=== PATIENT | female | born 1995 | race Caucasian/White ===

== ENCOUNTER 2016-10-20 18:46 | Emergency (ER) | payer MEDICAID ==
[~2016-10-20] VITALS: Ht 158.8 cm; Wt 65.4 kg
[2016-10-20 18:50] VITALS: BP 127/74
--- NOTE | 2016-10-20 19:19 | NUR ---
PATIENT PRESENTS TO ED WITH 21F BIB SELF C/O EPIGASTRIC PAIN X TODAY. PT STATES 8 WEEKS AT THIS TIME, WITH N/V, DENIES DIARHHEA; SKIN IS PINK/WARM/DRY; AAOX4 WITH EVEN AND STEADY GAIT; LUNGS CLEAR BL; HR EVEN AND REGULAR; PT DENIES ANY FEVER, CP, SOB, OR COUGH AT THIS TIME; PATIENT STATES PAIN OF 9/10 AT THIS TIME; PATIENT POSITIONED FOR COMFORT; HOB ELEVATED; BEDRAILS UP X2; BED DOWN. ER MD MADE AWARE OF PT STATUS.
--- NOTE | 2016-10-20 19:24 | NUR ---
DR. BOWMAN AT BEDSIDE
[2016-10-20] MEDS ORDERED: ONDANSETRON 4 MG/2 ML VIAL IVP ONE (19:35)
[2016-10-20] MEDS ORDERED: KETOROLAC 30 MG/ML VIAL IVP ONE (19:35)
[2016-10-20] MEDS ORDERED: PANTOPRAZOLE 40 MG INJ VIAL IVP ONE (19:35)
[2016-10-20] MEDS ORDERED: NACL 0.9% 1,000 ML IV ONE (19:35)
--- NOTE | 2016-10-20 19:41 | NUR ---
DR. BOWMAN AT BEDSIDE
[2016-10-20 19:59] LABS: APPEARANCE,URINE SL CLOUDY (CLEAR); BILIRUBIN,URINE NEGATIVE (NEGATIVE); BLOOD, URINE NEGATIVE (NEGATIVE); COLOR,URINE YELLOW (YELLOW); LEUKOCYTE ESTERASE ,URINE NEGATIVE (NEGATIVE); NITRITE, URINE NEGATIVE (NEGATIVE); PROTEIN,URINE NEGATIVE (NEGATIVE); UGLUCOSE NEGATIVE (NEGATIVE); UROBILINOGEN,URINE 0.2 EU/dL (0.2 - 1)
[2016-10-20 20:05] LABS: BASOPHILS # (AUTO) 0.1 K/uL (0.00-0.22); BASOPHILS % (AUTO) 1.1 % (0.0-2.0); EOSINOPHILS # (AUTO) 0.2 K/uL (0-0.4); EOSINOPHILS % (AUTO) 1.8 % (0.0-4.0); HEMATOCRIT 39.7 % (36-48); HEMOGLOBIN 13.1 g/dL (12.0-16.0); LYMPHOCYTES # (AUTO) 1.7 K/uL (2.5-16.5); LYMPHOCYTES % (AUTO) 15.6 % (20.5-51.1); MEAN CORPUSCULAR HEMOGLOBIN 29 pg (27-31); MEAN CORPUSCULAR HGB CONC 33 g/dL (33-37); MEAN CORPUSCULAR VOLUME 88 fL (80-94); MONOCYTES # (AUTO) 0.7 K/uL (0.8-1.0); MONOCYTES % (AUTO) 6.2 % (1.7-9.3); NEUTROPHILS % (AUTO) 75.3 % (42.2-75.2); PLATELET COUNT (AUTO) 324 K/uL (140-450); WHITE BLOOD COUNT (AUTO) 10.7 K/uL (4.8-10.8)
[2016-10-20 20:07] LABS: BACTERIA,URINE None Seen /HPF (None Seen); RBC,URINE NONE SEEN /HPF (0-5); WBC,URINE 0-2 /HPF (0-5)
[2016-10-20 20:07] LABS: ANION GAP 13.2 (8-16); CALCIUM 8.1 mg/dL (8.5-10.1); CARBON DIOXIDE 24.3 mmol/L (21-32); CREATININE 0.6 mg/dL (0.6-1.3); POTASSIUM 3.5 mmol/L (3.5-5.1)
[2016-10-20 20:08] LABS: SQUAMOUS EPITHELIAL CELL,UR 4-10 (MOD) /LPF (0-3 (FEW)); URINE AMORPHOUS PHOSPHATES 3+ /HPF (None Seen)
--- NOTE | 2016-10-20 21:06 | NUR ---
US FINISHED PER PT SHE FEELS A LITTLE BIT BETTER, AT BEDSIDE, IVF ONGOING WELL TOLERATED, NO N/V NOTED AT THIS TIME.
[2016-10-20 21:32] VITALS: BP 110/69
--- NOTE | 2016-10-20 21:36 | NUR ---
Patient discharged with v/s stable. Written and verbal after care instructions given and explained. Patient alert, oriented and verbalized understanding of instructions. Ambulatory with steady gait. All questions addressed prior to discharge. ID band removed. Patient advised to follow up with PMD. Rx of OMEPRAZOLE given. Patient educated on indication of medication including possible reaction and side effects. Opportunity to ask questions provided and answered. ENCOURAGED FLUID INTAKE AND PT AGREED WITH IT.
== END 2016-10-20 21:36 | disposition home or self-care (01) ==
LOC: MED 18:46
DX: O99.611 Diseases of the digestive system complicating pregnancy, first trimester (principal); K92.89 Other specified diseases of the digestive system; Z3A.01 Less than 8 weeks gestation of pregnancy
CPT/HCPCS: 36415; 76705; 76801; 80048; 81001; 81025; 84702; 85025; 86900; 86901; 96361; 96374; 96375; 99285; C9113; J1885; J2405; J7030; Q0092

== ENCOUNTER 2016-11-20 17:51 | Emergency (ER) | payer MEDICAID ==
[~2016-11-20] VITALS: Ht 152.4 cm; Wt 65.3 kg
[2016-11-20 17:58] VITALS: BP 141/81
--- NOTE | 2016-11-20 18:46 | NUR ---
PATIENT AMBULATED TO BED 6.
--- NOTE | 2016-11-20 18:47 | NUR ---
21/F BIB FAMILY C/O VOMITING SINCE YESTERDAY WITH RIGHT FLANK PAIN 12/16; 3 MONTHS . SKIN IS PINK/WARM/DRY; AAOX4 WITH EVEN AND STEADY GAIT; LUNGS CLEAR BL; HR EVEN AND REGULAR; PT DENIES ANY FEVER, CP, SOB, OR COUGH AT THIS TIME; PATIENT STATES PAIN OF 9/10 AT THIS TIME; VSS; PATIENT POSITIONED FOR COMFORT; HOB ELEVATED; BEDRAILS UP X2; BED DOWN. ER MD MADE AWARE OF PT STATUS.
--- NOTE | 2016-11-20 19:03 | NUR ---
GPt report given to DANETTE MASCORRO. Transfer of care at this time.
--- NOTE | 2016-11-20 19:25 | NUR ---
REPORT RECEIVED FROM DANETTE SUMMERS
[2016-11-20] MEDS ORDERED: ONDANSETRON 4 MG/2 ML VIAL IVP ONE (19:35)
[2016-11-20] MEDS ORDERED: NACL 0.9% 1,000 ML IV ONE (19:35)
[2016-11-20 19:39] LABS: BASOPHILS # (AUTO) 0.2 K/uL (0.00-0.22); BASOPHILS % (AUTO) 1.5 % (0.0-2.0); EOSINOPHILS # (AUTO) 0.2 K/uL (0-0.4); EOSINOPHILS % (AUTO) 1.7 % (0.0-4.0); HEMATOCRIT 38.1 % (36-48); HEMOGLOBIN 13.1 g/dL (12.0-16.0); LYMPHOCYTES % (AUTO) 18.4 % (20.5-51.1); MEAN CORPUSCULAR HEMOGLOBIN 30 pg (27-31); MEAN CORPUSCULAR HGB CONC 34 g/dL (33-37); MEAN CORPUSCULAR VOLUME 88 fL (80-94); MONOCYTES # (AUTO) 0.6 K/uL (0.8-1.0); MONOCYTES % (AUTO) 5.9 % (1.7-9.3); NEUTROPHILS # (AUTO) 7.8 K/uL (1.8-7.7); NEUTROPHILS % (AUTO) 72.5 % (42.2-75.2); PLATELET COUNT (AUTO) 326 K/uL (140-450); RED BLOOD CELL COUNT(AUTO) 4.35 MIL/uL (4.20-5.40); RED CELL DISTRIBUTION WIDTH 13.9 % (11.6-13.7); WHITE BLOOD COUNT (AUTO) 10.8 K/uL (4.8-10.8)
[2016-11-20 19:46] LABS: APPEARANCE,URINE HAZY (CLEAR); BILIRUBIN,URINE NEGATIVE (NEGATIVE); BLOOD, URINE NEGATIVE (NEGATIVE); COLOR,URINE YELLOW (YELLOW); LEUKOCYTE ESTERASE ,URINE 2+ (NEGATIVE); NITRITE, URINE POSITIVE (NEGATIVE); PROTEIN,URINE NEGATIVE (NEGATIVE); UGLUCOSE NEGATIVE (NEGATIVE); UROBILINOGEN,URINE 0.2 EU/dL (0.2 - 1)
[2016-11-20 19:49] LABS: ANION GAP 13.4 (8-16); CALCIUM 8.7 mg/dL (8.5-10.1); CARBON DIOXIDE 25.1 mmol/L (21-32); CREATININE 0.6 mg/dL (0.6-1.3); POTASSIUM 3.5 mmol/L (3.5-5.1)
[2016-11-20 19:49] LABS: BACTERIA,URINE 4+ /HPF (None Seen); RBC,URINE 0-5 /HPF (0-5); SQUAMOUS EPITHELIAL CELL,UR 40-60 /LPF (0-3 (FEW)); WBC,URINE 20-40 /HPF (0-5)
--- NOTE | 2016-11-20 20:20 | NUR ---
Patient discharged with v/s stable. Written and verbal after care instructions given and explained. Patient verbalized understanding. Ambulatory with steady gait. All questions addressed prior to discharge. Advised to follow up with PMD.
[2016-11-20 20:55] VITALS: BP 141/81
== END 2016-11-20 20:55 | disposition home or self-care (01) ==
LOC: MED 17:51
DX: O23.41 Unspecified infection of urinary tract in pregnancy, first trimester (principal); R03.0 Elevated blood-pressure reading, without diagnosis of hypertension; Z3A.12 12 weeks gestation of pregnancy
CPT/HCPCS: 36415; 76770; 76801; 80048; 81001; 81025; 84702; 85025; 86900; 86901; 87086; 96361; 96374; 99285; J2405

== ENCOUNTER 2017-02-27 16:39 | Inpatient (IN) | payer MEDICAID ==
[~2017-02-27] VITALS: Ht 162.6 cm; Wt 73.9 kg
[~2017-02-27 16:39] MED LIST: PREN-546 PO
[2017-02-27 17:03] VITALS: BP 128/65
[2017-02-27] MEDS ORDERED: TERBUTALINE 1 MG/ML VIAL SUBQ ONE (20:19)
[2017-02-27] MEDS: LACTATED RINGERS 1,000 ML IV SCH ×2 (20:46→20:51)
[2017-02-27] MEDS: TERBUTALINE 1 MG/ML VIAL SUBQ SCH ×2 (20:53→20:54)
[2017-02-27] MEDS ORDERED: ONDANSETRON 4 MG/2 ML VIAL IVP PRN (22:00)
[2017-02-27] MEDS ORDERED: ONDANSETRON 4 MG/2 ML VIAL ONE (22:08)
[2017-02-28] MEDS ORDERED: BETAMETH ACET/BETAMETH NA PH 30 MG/5 ML VIAL IM ONE ×3 (01:05→13:14)
[2017-02-28] MEDS: AMPICILLIN 2,000 MG in NACL 0.9% 100 ML IV SCH ×4 (01:24→18:42)
[2017-02-28] MEDS ORDERED: AMPICILLIN 2,000 MG VIAL ONE ×6 (01:28→22:32)
[2017-02-28] MEDS ORDERED: AMPICILLIN 2,000 MG in NACL 0.9% 100 ML IV SCH (01:30)
[2017-02-28 01:31] LABS: HEMATOCRIT 31.1 % (36-48); HEMOGLOBIN 10.1 g/dL (12.0-16.0); MEAN CORPUSCULAR HEMOGLOBIN 29 pg (27-31); MEAN CORPUSCULAR HGB CONC 33 g/dL (33-37); MEAN CORPUSCULAR VOLUME 88 fL (80-94); PLATELET COUNT (AUTO) 353 K/uL (140-450); RED BLOOD CELL COUNT(AUTO) 3.54 MIL/uL (4.20-5.40); RED CELL DISTRIBUTION WIDTH 13.2 % (11.6-13.7)
[2017-02-28] MEDS ORDERED: TERBUTALINE 2.5 MG TAB ONE ×4 (01:39→18:45)
[2017-02-28 01:48] LABS: AMYLASE 35 U/L (25-115); LIPASE 123 U/L (73-393)
[2017-02-28 01:49] LABS: WHITE BLOOD COUNT (AUTO) 15.6 K/uL (4.8-10.8)
[2017-02-28 01:50] LABS: LYMPHOCYTES % (MANUAL) 8 % (20-46); MONOCYTES % (MANUAL) 4 % (5-12)
[2017-02-28] MEDS ORDERED: ONDANSETRON 4 MG/2 ML VIAL ONE ×2 (04:09→09:49)
[2017-02-28 07:15] LABS: APPEARANCE,URINE HAZY (CLEAR); BILIRUBIN,URINE NEGATIVE (NEGATIVE); BLOOD, URINE NEGATIVE (NEGATIVE); COLOR,URINE YELLOW (YELLOW); LEUKOCYTE ESTERASE ,URINE NEGATIVE (NEGATIVE); NITRITE, URINE NEGATIVE (NEGATIVE); UGLUCOSE NEGATIVE (NEGATIVE)
--- NOTE | 2017-02-28 10:08 | NUR ---
PATIENT HAS BEEN SCREENED AND CATEGORIZED LOW NUTRITION RISK. PATIENT WILL BE SEEN WITHIN 7 DAYS OF ADMISSION. 03/06/17 ALCIDES BUSTOS MBA, RD
[2017-02-28] MEDS: TERBUTALINE 2.5 MG TAB PO SCH ×2 (13:22→18:43)
[2017-02-28] MEDS: LACTATED RINGERS 1,000 ML IV SCH ×2 (15:49→20:01)
[2017-02-28] MEDS: BENZOCAINE/MENTHOL 1 LOZ MM PRN ×2 (18:31→20:31)
[2017-03-01] MEDS ORDERED: TERBUTALINE 2.5 MG TAB ONE (01:05)
[2017-03-01] MEDS ORDERED: AMPICILLIN 2,000 MG VIAL ONE (02:00)
[2017-03-01] MEDS: LACTATED RINGERS 1,000 ML IV SCH (02:36)
== END 2017-03-01 10:01 | disposition home or self-care (01) | DRG 563 ==
LOC: MLD 16:39 → OBSVTOIN 02-28 07:00
PROVIDERS: ADMIT Obstetrics & Gynecology; ATTEND Obstetrics & Gynecology
DX: O60.02 Preterm labor without delivery, second trimester (principal); Z3A.27 27 weeks gestation of pregnancy
CPT/HCPCS: G0378 ×14; 36415; 76705; 76805; 81003; 82150; 83690; 85025; 86592; 86762; 86886; 86900; 86901; 87340; 87653-90; J0290; J0702; J2405; J3105; J7120; Q0092